=== PATIENT | male | born 1990 | race Caucasian/White ===

== ENCOUNTER 2020-10-06 08:10 | Emergency (ER) | payer SELFPAY ==
--- NOTE | ~2020-10-06 | XR_ITS ---
EXAMINATION: XR SHOULDER, LEFT CLINICAL INFORMATION: Pain, limited range of motion. COMPARISON: None TECHNIQUE: Left shoulder is imaged in 4 views. FINDINGS: There is no fracture or dislocation or destructive process. The glenohumeral joint is normal. The acromioclavicular alignment is normal. There are no visible rotator cuff calcifications. XR/XR shoulder LT min 2V IMPRESSION: Normal left shoulder.
[2020-10-06 08:15] VITALS: BP 144/77; PULSE 74; RESP 18; TEMP 36.6; O2SAT 98; BMI 30.7
--- NOTE | 2020-10-06 08:53 | ED_ITS ---
HPI - Extremity Injury (Upper) General Chief Complaint: Extremity Injury, Upper Stated Complaint: shoulder weakness Time Seen by Provider: 10/06/20 08:22 Source: patient Mode of arrival: ambulatory Limitations: no limitations History of Present Illness MD complaint: injury to: left and shoulder Onset (ago): day(s) Other Extremity Injury: left: shoulder Other injuries: none Place: other (Possibly while playing paint ball) Severity: mild Relieving factors: none Exacerbating factors: other (Picking up things or lifting the arm) Context: other (Possibly direct blow with paint balls) Associated symptoms: denies other symptoms Related Data Previous Rx's Medication Instructions Recorded acetaminophen [Tylenol Extra 1,000 mg PO QID PRN #14 tab 10/06/20 Strength] cyclobenzaprine 10 mg PO Q8H #10 tab 10/06/20 ibuprofen 800 mg PO Q8H PRN #14 tab 10/06/20 lidocaine HCl [Aspercreme 1 appl TOPICAL BID PRN #120 g 10/06/20 (lidocaine HCl)] Allergies Allergy/AdvReac Type Severity Reaction Status Date / Time No Known Allergies Allergy Unverified 12/13/19 17:49 Review of Systems Review of Systems: Constitutional : No changes in activity, No lethargy, No recent prior head injury, No agitation, No increased fussiness ENT/Mouth : No Ear Pain, No Nasal discharge/drainage Eyes: No Eye Pain, No Swelling, No Redness, No Foreign Body, No Vision Changes Cardiovascular : No Chest Pain, No SOB Respiratory : No Cough Gastrointestinal : No Nausea, No Vomiting, No abdominal Pain Genitourinary : No Dysuria, No Urinary Frequency, No Urinary Incontinence, No Urgency, No Flank Pain Musculoskeletal : + joint pain, No neck stiffness, No back pain/injury Skin : No lacerations Neuro : No unsteady gait, No Paresthesias, No Loss of Consciousness, No altered mental status, No Headache Yes all other systems are reviewed and are negative [facility]LY [facility], [facility] Past Medical History Attestation statement: The following information was validated with the patient. Social History Social History Alcohol intake: current Alcohol intake frequency: holidays/special occasions only Patient Tobacco Use Status: Never used Tobacco Substance Use Type: Marijuana Advance Directives: Yes Advance Directives Information Provided: Yes Advance Directives on File: No Physical Exam Vital Signs: Vital Signs: Last Vital Signs Temp 98 F 10/06/20 08:15 Pulse 74 10/06/20 08:15 Resp 18 10/06/20 08:15 BP 144/77 H 10/06/20 08:15 Pulse Ox 98 10/06/20 08:15 Body Mass Index 30.7 vital signs have been reviewed as normal and appeared to be correct. Blood pressure normal. Heart rate normal. Respiration rate normal. Temperature normal. Oxygen saturation normal. Appearance: Alert. Oriented X3. No acute di stress. Head: Normal external exam. Normocephalic. Atraumatic. Eyes: PERRLA. EOMI. Conjunctiva and sclera normal. Eyelids normal. ENT: Pharynx normal. Uvula midline. Moist mucous membranes. Neck: Normal inspection. Neck supple. FROM. No adenopathy. No meningeal signs. CVS: Normal heart rate and rhythm. Respiratory: No respiratory distress. Painless inspiration. Back:Full range of motion noted. No rashes/lesion/induration/fluctuance or signs of infection noted. Skin: Skin warm and dry. Normal skin color. Normal skin turgor. No rashes/lesions/lacerations noted. Extremities: Patient mild tender to palpation to left scapula. Although patient has full range of motion of the left shoulder joint no ligamentous laxity noted. No signs of infection. No rashes are noted. Has normal strength and sensation. Otherwise all other Extremities exhibit normal range of motion and nontender. Neuro: Oriented X 3. No motor deficit. No sensory deficit. Reflexes normal. Normal steady gait. No focal neuro deficits noted. Course Course Course Narrative: 30-year-old male presenting to the ED with complaints of posterior left shoulder pain/scapular pain that started after he was paint balling with his friend. He reports this has been occurring for the past few days intermittently. On exam patient has full range of motion. No obvious ligamentous laxity. No signs of infection. No rashes noted. X-ray negative for any acute processes. He denies any other symptoms complaints or concerns at this time. Will DC home with symptomatic treatment instructions return if any new or worsening symptoms and to follow up with Orthopedics in 2-3 weeks if symptoms persist. Patient understands agrees with this plan. MDM - Extremity Injury (Upper) Medical Records Attestation: I reviewed the patient's medical records. Lab Data Attestation: I reviewed the patient's lab results. Imaging Data X-ray of left shoulder: Attestation: I personally reviewed and interpreted this imaging study as follows: Radiologist's impression: FINDINGS: There is no fracture or dislocation or destructive process. The glenohumeral joint is normal. The acromioclavicular alignment is normal. There are no visible rotator cuff calcifications. XR/XR shoulder LT min 2V IMPRESSION: Normal left shoulder. Discharge Plan Discharge Clinical Impression: Muscle strain of left scapular region Patient Disposition: Home, Self-Care Instructions: Muscle Strain (ED) Prescriptions: New cyclobenzaprine 10 mg tablet 10 mg PO Q8H Qty: 10 RF: 0 ibuprofen 800 mg tablet 800 mg PO Q8H PRN (Reason: pain) Qty: 14 RF: 0 acetaminophen [Tylenol Extra Strength] 500 mg tablet 1,000 mg PO QID PRN (Reason: fever or pain) Qty: 14 RF: 0 lidocaine HCl [Aspercreme (lidocaine HCl)] 4 % cream 1 appl topical BID PRN (Reason: pain) Qty: 120 RF: 0 Referrals: Kaz Lu MD [Physician] - 2 weeks (In 2-3 weeks if symptoms persist) Print Language: Irish
== END 2020-10-06 09:05 | disposition home or self-care (01) ==
PROVIDERS: Emergency Provider Emergency Medicine
DX: S46.912A Strain of unspecified muscle, fascia and tendon at shoulder and upper arm level, left arm, initial encounter (principal); M79.602 Pain in left arm; F12.90 Cannabis use, unspecified, uncomplicated; Y33.XXXA Other specified events, undetermined intent, initial encounter; Y93.9 Activity, unspecified; Y92.9 Unspecified place or not applicable; Y99.8 Other external cause status; Z79.899 Other long term (current) drug therapy
CPT/HCPCS: 73030; 99284

== ENCOUNTER 2020-12-21 20:18 | Emergency (ER) | payer SELFPAY ==
[2020-12-21 20:26] VITALS: BP 150/95; PULSE 88; RESP 17; TEMP 36.8; O2SAT 98; BMI 31.6
--- NOTE | 2020-12-21 21:36 | ED.DENTAL ---
HPI - Dental/Oral General Chief complaint: Dental/Oral Stated complaint: Facial swelling Time Seen by Provider: 12/21/20 21:30 Source: patient History of Present Illness HPI Narrative: Patient states he has had swelling of the left side of his face which started today. Prior to today had pain in his left upper incisor which was radiating into his face but there is no swelling at the time. Now the pain is gone but the swelling is there. No fevers but he has been feeling hot and cold today. No difficulty breathing or swallowing. History of dental infections in the past but not as severe as this. He is attempting to get mass helps Related Data Previous Rx's Medication Instructions Recorded acetaminophen 500 mg tablet 1,000 mg PO QID PRN #14 tab 10/06/20 (Tylenol Extra Strength) cyclobenzaprine 10 mg tablet 10 mg PO Q8H #10 tab 10/06/20 ibuprofen 800 mg tablet 800 mg PO Q8H PRN #14 tab 10/06/20 lidocaine HCl 4 % topical cream 1 appl TOPICAL BID PRN #120 g 10/06/20 (Aspercreme (lidocaine HCl)) amoxicillin 500 mg tablet 1,000 mg PO Q12H #40 tab 12/21/20 Allergies Allergy/AdvReac Type Severity Reaction Status Date / Time No Known Allergies Allergy Verified 12/21/20 20:26 Review of Systems Constitutional: Comments: No fevers but positive chills ENT: Comments: Dental pain and facial swelling Respiratory: Comments: No difficulty breathing PMFSH Past Medical History Medical History (Updated 12/21/20 @ 21:39 by Alfredo Ledezma MD) No active medical problems Social History Social History Alcohol intake: current Alcohol intake frequency: holidays/special occasions only Patient Tobacco Use Status: Never used Tobacco Substance Use Type: Marijuana Advance Directives: No Advance Directives Information Provided: Yes Physical Exam Vital Signs: Vital Signs: Last Vital Signs Temp 98.2 F 12/21/20 20:26 Pulse 88 12/21/20 20:26 Resp 17 12/21/20 20:26 BP 150/95 H 12/21/20 20:26 Pulse Ox 98 12/21/20 20:26 Body Mass Index 31.6 Const: Other: Awake alert no acute distress HENMT: Other: Left facial swelling from the maxilla up to the inferior orbital rim. Mild erythema. No fluctuance. Mild left upper incisor tenderness. No abscess noted Resp: Other: No respiratory distress Skin: Other: Warm pink and dry Course Course Course Narrative: Dental infection with facial involvement Airway intact Treated with amoxicillin. Stable for discharge home Discharge Plan Discharge Clinical Impression: Toothache Patient Disposition: Home, Self-Care Instructions: Toothache (ED) Additional Instructions: Follow-up with a dentist as soon as you are able. Prescriptions: New amoxicillin 500 mg tablet 1,000 mg PO Q12H Qty: 40 RF: 0 No Action cyclobenzaprine 10 mg tablet 10 mg PO Q8H Qty: 10 RF: 0 ibuprofen 800 mg tablet 800 mg PO Q8H PRN (Reason: pain) Qty: 14 RF: 0 acetaminophen [Tylenol Extra Strength] 500 mg tablet 1,000 mg PO QID PRN (Reason: fever or pain) Qty: 14 RF: 0 lidocaine HCl [Aspercreme (lidocaine HCl)] 4 % cream 1 appl topical BID PRN (Reason: pain) Qty: 120 RF: 0
[2020-12-21] MEDS: Amoxicillin 500 MG CAPSULE 1000 MG PO (21:47)
== END 2020-12-21 21:50 | disposition home or self-care (01) ==
PROVIDERS: Emergency Provider Emergency Medicine
DX: K02.9 Dental caries, unspecified (principal); F12.90 Cannabis use, unspecified, uncomplicated; Z79.899 Other long term (current) drug therapy
CPT/HCPCS: 99283

== ENCOUNTER 2020-12-22 07:08 | Emergency (ER) | payer OTHER, SELFPAY ==
--- NOTE | ~2020-12-22 | CT_ITS ---
EXAMINATION: CT FACIAL BONES WITH CONTRAST CLINICAL INFORMATION: Left facial swelling COMPARISON: Previous CT of the facial bones July 2017 TECHNIQUE: Axial images through the facial bones following IV contrast. The patient received 85 mL Omnipaque 350 intravenous contrast. Sagittal and coronal reconstructions on the technologist workstation were performed. This CT examination was performed using dose optimization techniques as appropriate, variously including the following: *Automated exposure control *Adjustment of mA and/or kV according to patient size (this includes techniques or standardized protocols for targeted exams where dose is matched to indication/reason for exam; i.e. extremities or head) *Use of iterative reconstruction technique DLP: 501 mGy-cm FINDINGS: There is a large soft tissue defect seen in the left side of the face extending to the bone involving the left superior and inferior alveolar ridge/teeth. There is poor dentition and multiple dental caries. There is a dental abscess seen in the left inferior alveolar ridge involving the most posterior remaining molar. There is overlying soft tissue swelling. There is thickening of the skin and stranding of the subcutaneous fat. There may be a small amount of fluid immediately adjacent to the left inferior alveolar ridge remaining molar. This area measures 1.2 x 2.5 x 2 cm in transverse AP and longitudinal dimension axial image 78 series 2 and coronal reconstructed image 103 and is questionable for small adjacent abscess. Diffuse left face soft tissue swelling extends to the left inferior orbit. There is preseptal soft tissue swelling over the left orbit. The orbits are otherwise normal. The mastoid air cells and middle ears are clear. Temporomandibular joints are normal. Visualized intracranial structures are normal. Visualized vascular structures are normal. There is diffuse cervical lymphadenopathy, left greater than right. The salivary glands are normal. There is a high attenuation material seen in the posterior neck adjacent to the C2 and C3 spinous processes suggestive of radiopaque soft tissue foreign body. CT/CT facial bones w con IMPRESSION: Large tissue defect in the left side of the face extending to the left superior and inferior alveolar ridges. Poor dentition with multiple dental caries including large dental abscess involving the left inferior remaining molar. Small adjacent fluid collection measuring 1.2 x 2.5 x 2 cm questionable for abscess. Diffuse soft tissue swelling of the left side of the face, skin thickening and edema of the subcutaneous fat. This extends to the left orbit and there is preseptal soft tissue swelling over the left orbit. Pansinusitis. Diffuse cervical lymphadenopathy, left greater than right. Soft tissue foreign body in the left posterior neck.
[2020-12-22 07:33] VITALS: PULSE 88; BMI 31.6
[2020-12-22 07:36] VITALS: BP 127/76; PULSE 93; RESP 18; TEMP 36.5; O2SAT 97
--- NOTE | 2020-12-22 07:47 | ED_ITS ---
HPI - Dental/Oral General Chief complaint: Dental/Oral Stated complaint: DENTAL PAIN FACIAL SWELLING Time Seen by Provider: 12/22/20 07:33 Source: patient Mode of arrival: ambulatory Limitations: no limitations History of Present Illness MD Complaint: tooth pain Teeth map: 1. Onset (ago): hour(s) (toothace for days, given amoxicillin last night but this AM woke up with L sided facial swelling) Duration: worsening Severity: moderate Relieving factors: nothing Exacerbating factors: chewing and cold Context: history of dental caries Associated symptoms: gum swelling Treatment prior to arrival: other (amoxicillin) Related Data Previous Rx's Medication Instructions Recorded acetaminophen 500 mg tablet 1,000 mg PO QID PRN #14 tab 10/06/20 (Tylenol Extra Strength) cyclobenzaprine 10 mg tablet 10 mg PO Q8H #10 tab 10/06/20 ibuprofen 800 mg tablet 800 mg PO Q8H PRN #14 tab 10/06/20 lidocaine HCl 4 % topical cream 1 appl TOPICAL BID PRN #120 g 10/06/20 (Aspercreme (lidocaine HCl)) amoxicillin 500 mg tablet 1,000 mg PO Q12H #40 tab 12/21/20 clindamycin HCl 300 mg capsule 300 mg PO Q8H 10 Days #30 cap 12/22/20 Allergies Allergy/AdvReac Type Severity Reaction Status Date / Time No Known Allergies Allergy Verified 12/21/20 20:26 Review of Systems Review of Systems: Constitutional : No Fever, No Chills ENT/Mouth : No sore throat, No Rhinorrhea, pos dental pain, pos facial swelling Eyes: No Eye Pain, pos Swelling, No Redness Cardiovascular : No Chest Pain, No SOB Respiratory : No Cough, No Sputum, No Wheezing Gastrointestinal : No Nausea, No Vomiting, No Diarrhea Genitourinary : No Dysuria, No Urinary Frequency, No Hematuria, Musculoskeletal : No joint pain, No Myalgias, No Joint Swelling Skin : No Skin Lesions, No rash Neuro : No Weakness, No Numbness, No Dizziness, No Headache Psych : No Anxiety/Panic, No Depression Heme/Lymph: No Bruising, No Bleeding,No Lymphadenopathy Endocrine : No Polyuria, No Polydipsia All other systems reviewed and are negative [facility] Past Medical History Attestation statement: The following information was validated with the patient. Medical History No active medical problems Social History Social History Alcohol intake: current Alcohol intake frequency: holidays/special occasions only Patient Tobacco Use Status: Never used Tobacco Substance Use Type: Marijuana Advance Directives: No Advance Directives Information Provided: No Physical Exam Vital Signs: Vital Signs: Last Vital Signs Temp 97.7 F 12/22/20 07:36 Pulse 65 12/22/20 09:19 Resp 15 12/22/20 09:19 BP 134/88 12/22/20 09:19 Pulse Ox 98 12/22/20 09:19 Body Mass Index 31.6 Appearance: Alert. Oriented X3. No acute distress. Eyes: Pupils equal, round and reactive to light. ENT: L upper 1st molar - cracked area with moderate swelling and fluctuant mass felt above tooth - swelling goes onto L cheek and soft non erythematous puffiness to L eye - EOMi no pain Neck: Normal inspection. Neck supple. CVS: Normal heart rate and rhythm. Pulses normal. Respiratory: No respiratory distress. Breath sounds normal. Abdomen: Soft and nontender. Skin: Skin warm and dry. Normal skin color. Normal skin turgor. Extremities: No lower extremity edema. No calf ttp Neuro: Oriented X 3. No motor deficit. No sensory deficit. Course Course Course Narrative: I was able to drain the patient - still with abscess, swelling has improved, did discuss the only option for transfer at this time is likely [place] as [facility] are closed - he wants to try oral antibiotics for 24 hours plans to return if this worsens, this is reasonable since I was able to aspirate purulence and leave an area draining MDM - Dental/Oral MDM Narrative Medical decision making narrative: 30 yo male with dental abscess now with facial swelling - will obtain labs, CT scan for extent of abscess will attempt to drain the area as well, IV zosyn for antibiotics dispo per results and findings - no concern for deeper [employer] infection Lab Data Result diagrams: 12/22/20 07:46 12/22/20 07:46 Labs: Lab Results 12/22/20 12/22/20 12/22/20 Range/Units 07:46 07:46 07:46 WBC 9.0 (4.8-10.8) X10*3/uL RBC 5.52 (4.60-5.80) X10*6/uL Hgb 16.3 (14.0-18.0) g/dl Hct 47.6 (42-52) % MCV 86.2 (80-98) fL MCH 29.5 (27.0-33.0) pg MCHC 34.2 (31.0-36.0) g/dl RDW 13.7 (11.0-16.0) % Plt Count 252 (160-400) X10*3/uL MPV 9.7 (9.4-12.4) fL Immature Gran % (Auto) 0.3 (0.0-0.4) % Neut % (Auto) 64.5 (45-73) % Lymph % (Auto) 23.6 (20-40) % [place] % (Auto) 9.4 (2-11) % Eos % (Auto) 2.1 (0-4) % Baso % (Auto) 0.1 (0-2) % Lymph # (Auto) 2.1 (1.2-4.9) X10*3/uL [place] # (Auto) 0.9 (0.1-1.2) X10*3/uL Eos # (Auto) 0.2 (0.0-0.4) X10*3/uL Baso # (Auto) 0.0 (0.0-0.2) X10*3/uL Abs Immat Gran (auto) 0.03 (0.00-0.03) X10*3/uL Absolute Neuts (auto) 5.8 (2.0-8.3) X10*3/uL Absolute Nucleated RBC 0.000 (0.0-0.012) X10*3/uL Nucleated RBC % (auto) 0.0 (0.0-0.2) /100WBC Sodium 139 (135-145) mmol/L Potassium 4.0 (3.3-5.1) mmol/L Chloride 106 (96-108) mmol/L Carbon Dioxide 22 (22-29) mmol/L Anion Gap 15 (12-20) BUN 9 (9-16) mg/dL Creatinine 0.88 (0.5-1.4) mg/dL Estim Creat Clear Calc 128.1 Estimated GFR > 60 Random Glucose 103 (60-115) mg/dL Lactic Acid 0.6 (0.5-2.0) mmol/L Calcium 9.3 (8.4-10.2) mg/dL COVID-19 (ADRIANE) (Negative) COVID-19 Clin Com 12/22/20 Range/Units 07:46 WBC (4.8-10.8) X10*3/uL RBC (4.60-5.80) X10*6/uL Hgb (14.0-18.0) g/dl Hct (42-52) % MCV (80-98) fL MCH (27.0-33.0) pg MCHC (31.0-36.0) g/dl RDW (11.0-16.0) % Plt Count (160-400) X10*3/uL MPV (9.4-12.4) fL Immature Gran % (Auto) (0.0-0.4) % Neut % (Auto) (45-73) % Lymph % (Auto) (20-40) % [place] % (Auto) (2-11) % Eos % (Auto) (0-4) % Baso % (Auto) (0-2) % Lymph # (Auto) (1.2-4.9) X10*3/uL [place] # (Auto) (0.1-1.2) X10*3/uL Eos # (Auto) (0.0-0.4) X10*3/uL Baso # (Auto) (0.0-0.2) X10*3/uL Abs Immat Gran (auto) (0.00-0.03) X10*3/uL Absolute Neuts (auto) (2.0-8.3) X10*3/uL Absolute Nucleated RBC (0.0-0.012) X10*3/uL Nucleated RBC % (auto) (0.0-0.2) /100WBC Sodium (135-145) mmol/L Potassium (3.3-5.1) mmol/L Chloride (96-108) mmol/L Carbon Dioxide (22-29) mmol/L Anion Gap (12-20) BUN (9-16) mg/dL Creatinine (0.5-1.4) mg/dL Estim Creat Clear Calc Estimated GFR Random Glucose (60-115) mg/dL Lactic Acid (0.5-2.0) mmol/L Calcium (8.4-10.2) mg/dL COVID-19 (ADRIANE) Negative (Negative) COVID-19 Clin Com See Note Procedures Abscess I/D Site: oral Side (if applicable): left Local Anesthetic: other anesthetic (lolicaine) Technique: needle aspiration Amount of fluid expressed (mL): 3 Sent for culture/gram staining?: No Irrigation: No Packing used?: none Discharge Plan Discharge Clinical Impression: Dental abscess Patient Disposition: Home, Self-Care Instructions: Dental Abscess (ED), Abscess Incision and Drainage (DC) Additional Instructions: return to ED for any worsening symptoms or concerns STOP TAKING amoxicillin please find a dentist as soon as possible IF IN 24 HOURS THIS IS NOT BETTER OR YOU FEEL IT IS WORSE YOU NEED TO BE SEEN AGAIN AND TRANSFERRED TO A HOSPITAL WITH ORAL SURGERY AVAILABLE Prescriptions: New clindamycin HCl 300 mg capsule 300 mg PO Q8H 10 Days Qty: 30 RF: 0 No Action cyclobenzaprine 10 mg tablet 10 mg PO Q8H Qty: 10 RF: 0 ibuprofen 800 mg tablet 800 mg PO Q8H PRN (Reason: pain) Qty: 14 RF: 0 acetaminophen [Tylenol Extra Strength] 500 mg tablet 1,000 mg PO QID PRN (Reason: fever or pain) Qty: 14 RF: 0 lidocaine HCl [Aspercreme (lidocaine HCl)] 4 % cream 1 appl topical BID PRN (Reason: pain) Qty: 120 RF: 0 amoxicillin 500 mg tablet 1,000 mg PO Q12H Qty: 40 RF: 0 Stand Alone Forms: Work/School Release
[2020-12-22 07:53] LABS: Basophils Percent Auto 0.1 % (0-2); Eosinophils Absolute Auto 0.2 X10*3/uL (0.0-0.4); Eosinophils Percent Auto 2.1 % (0-4); Hematocrit 47.6 % (42-52); Hemoglobin 16.3 g/dl (14.0-18.0); Imm Gran Abs Auto 0.03 X10*3/uL (0.00-0.03); Imm Gran Pct Auto 0.3 % (0.0-0.4); Lymphocytes Absolute Auto 2.1 X10*3/uL (1.2-4.9); Lymphocytes Percent Auto 23.6 % (20-40); MANUAL DIFF FLAG NO; Mean Corpuscular HGB Conc 34.2 g/dl (31.0-36.0); Mean Corpuscular Hemoglobin 29.5 pg (27.0-33.0); Mean Corpuscular Volume 86.2 fL (80-98); Mean Platelet Volume 9.7 fL (9.4-12.4); Monocytes Absolute Auto 0.9 X10*3/uL (0.1-1.2); Monocytes Percent Auto 9.4 % (2-11); Neutrophils Absolute Auto 5.8 X10*3/uL (2.0-8.3); Neutrophils Percent Auto 64.5 % (45-73); Platelet Count 252 X10*3/uL (160-400); Red Blood Count 5.52 X10*6/uL (4.60-5.80); Red Cell Distribution Width 13.7 % (11.0-16.0)
[2020-12-22] MEDS: Morphine Sulfate 4 MG/ML CARTRIDGE IVPUSH (07:54)
[2020-12-22] MEDS: ondansetron HCL 4 MG/2 ML VIAL IVPUSH (07:55)
[2020-12-22 08:04] LABS: Lactic Acid 0.6 mmol/L (0.5-2.0)
[2020-12-22 08:07] LABS: Anion Gap 15 (12-20); Blood Urea Nitrogen 9 mg/dL (9-16); Calcium 9.3 mg/dL (8.4-10.2); Carbon Dioxide 22 mmol/L (22-29); Chloride 106 mmol/L (96-108); Creatinine Clr Calc Pharmacy 128.1; Estimated Glomerular Filt Rate > 60; Glucose Random 103 mg/dL (60-115); Sodium 139 mmol/L (135-145)
[2020-12-22 08:13] LABS: COVID-19 Test Negative (Negative)
[2020-12-22] MEDS: iohexoL 350 MG/ML 100 ML INFUS..BTL 85 ML IV (08:22)
[2020-12-22] MEDS: Piperacillin Sodium/Tazobactam 3.375 GM in 0.9 % Sodium Chloride 50 ML IV (08:22)
[2020-12-22 09:19] VITALS: BP 134/88; PULSE 65; RESP 15; O2SAT 98
== END 2020-12-22 09:43 | disposition home or self-care (01) ==
PROVIDERS: Emergency Provider Emergency Medicine
DX: K04.7 Periapical abscess without sinus (principal); Z20.822 Contact with and (suspected) exposure to COVID-19; Z79.899 Other long term (current) drug therapy
CPT/HCPCS: 36415; 41800; 70487; 80048; 83605; 85025; 87040; 87635; 96365; 96375; 99284; J2270; J2405; J2543; Q9967